=== PATIENT | male | born 2000 | race Hispanic/Latino ===

== ENCOUNTER 2024-03-30 00:23 | Emergency (ER) | payer SELFPAY ==
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
[2024-03-30 00:23] VITALS: BP 122/78; PULSE 100; RESP 15; TEMP 36.5; O2SAT 100
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
[2024-03-30] MEDS: HYDROGEN PEROXIDE 3% SOLN(*SP) 473 ML BOTTLE (00:40)
[2024-03-30] MEDS: ACETAMINOPHEN 325 MG TABLET 650 MG PO (01:22)
[2024-03-30 04:53] VITALS: BP 124/82; PULSE 79; RESP 15; O2SAT 100
== END 2024-03-30 04:55 | disposition home or self-care (01) ==
PROVIDERS: Emergency Provider Emergency Medicine
DX: S02.2XXA Fracture of nasal bones, initial encounter for closed fracture (principal); Y04.2XXA Assault by strike against or bumped into by another person, initial encounter
CPT/HCPCS: 70450; 70486; 71045; 99284; A9270